=== PATIENT | female | born 1995 | race Caucasian/White ===

== ENCOUNTER 2017-05-03 13:41 | Emergency (ER) | END 2017-05-03 18:16 | disposition home or self-care (01) ==

== ENCOUNTER 2017-05-05 07:44 | Emergency (ER) | END 2017-05-05 09:07 | disposition home or self-care (01) ==

== ENCOUNTER 2018-11-25 11:21 | Emergency (ER) | payer OTHER ==
[~2018-11-25] VITALS: Ht 165.1 cm; Wt 100.2 kg
[~2018-11-25 11:21] MED LIST: ALBU8.5H8 INH; AMOX500C2 PO; BECL8.7A INH; CEPH-443 PO; HYDR-4011 PO; IBUP-1542 PO; IBUP-1561 PO; PREN-19 PO; SULF1TAB31 PO
[2018-11-25 11:36] VITALS: Ht 165.1 cm; Wt 100.2 kg
[2018-11-25 14:09] VITALS: BP 126/73; PULSE 76; RESP 16
== END 2018-11-25 14:10 | disposition home or self-care (01) ==
LOC: E/R 11:21
DX: O26.892 Other specified pregnancy related conditions, second trimester (principal); R06.02 Shortness of breath; Z3A.18 18 weeks gestation of pregnancy
CPT/HCPCS: 36415; 85025; 93005; Z7502